=== PATIENT | female | born 1945 | race Caucasian/White ===

== ENCOUNTER 2022-07-22 07:33 | Day surgery (SDC) | payer MEDICARE, OTHER ==
[2022-07-22] MEDS ORDERED: Ringers Lactate 1,000 ML IV ONE (08:11)
[2022-07-22] MEDS ORDERED: LIDOCAINE 1% MPF 2 ML AMPULE ONE (09:22)
[2022-07-22] MEDS ORDERED: propofoL 200 MG/20 ML VIAL IV ONE (09:22)
[2022-07-22] MEDS ORDERED: ONDANSETRON 4 MG/2 ML VIAL ONE (09:22)
[2022-07-22] MEDS ORDERED: PROMETHAZINE INJ 25 MG/ML AMP ONE (09:26)
[2022-07-22] MEDS ORDERED: dexAMETHasone 4 MG/ML VIAL ONE (09:26)
[2022-07-22] MEDS ORDERED: EPINEPHRINE/PF 1 MG/ML AMP ONE (10:06)
--- NOTE | 2022-07-22 10:08 | ENDO RPT ---
[address], [address] EGD PROCEDURE REPORT EXAM DATE: 07/22/2022 PATIENT NAME: Milana Gr MR#: [id number] BIRTHDATE: 1945 ATTENDING: Viraj Lozano DR STATUS: outpatient AREA FORESTER: Funmilayo AKERS and Umer Mai [employer] INDICATIONS: The patient is a 76 yr old Female here for an EGD due to Personal history of Turcios's esophagus PROCEDURE PERFORMED: EGD with biopsy for H. pylori, EGD with biopsy, and EGD for control of bleeding MEDICATIONS: Per Anesthesia. TOPICAL ANESTHETIC: none CONSENT: The patient understands the risks and benefits of the procedure and understands that these risks include, but are not limited to: sedation, allergic reaction, infection, perforation and/or bleeding. Alternative means of evaluation and treatment include, among others: physical exam, x-rays, and/or surgical intervention. The patient elects to proceed with this endoscopic procedure. DESCRIPTION OF PROCEDURE: During intra-op preparation period all mechanical medical equipment was checked for proper function. Hand hygiene and appropriate measures for infection prevention was taken. Procedure, possible complications, and alternatives including but not limited to the possibility of bleeding, perforation, tear, infection, sepsis, need for surgery, need for blood transfusion, and anesthesia related complications were explained to the patient. After the risks, benefits and alternatives of the procedure were thoroughly explained, Informed consent was verified, confirmed and timeout was successfully executed by the treatment team. The patient was placed in the left lateral position. The patient was anesthetized with topical anesthesia. Through the anesthetized oropharyngeal area, the scope was passed without any difficulty. The EG-[id number] ([id number]) endoscope was introduced through the mouth and advanced to the third portion of the duodenum. Retroflexed views revealed a small hiatal hernia. The gastroscope was then slowly withdrawn and removed. Bile reflux was found in the gastroesophageal junction. Injection of epinepherine to biopsy sites With standard forceps, a biopsy was obtained and sent to pathology. Multiple biopsies were obtained and sent to pathology. A biopsy for H. pylori was taken. Mild gastritis was found in the body and the antrum of the stomach. Multiple biopsies were obtained and sent to pathology. With standard forceps, a biopsy was obtained and sent to pathology. A biopsy for H. pylori was taken. 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 Located 18-35 cm from the point of entry. A small hiatal hernia was found in the gastroesophageal junction. Located 38 cm from the point of entry. Inflammation was found in the gastroesophageal junction. 4 quadrant biopsies for Barretts Performed Multiple biopsies were obtained and sent to pathology. ADVERSE EVENTS: There were no complications. IMPRESSIONS: 1. Bile reflux was found in the gastroesophageal junction 2. Mild gastritis was found in the body and the antrum of the stomach RECOMMENDATIONS: 1. acid suppression therapy 2. anti-reflux regimen 3. await biopsy results 4. follow-up: office 2 week(s) 5. avoid NSAIDS 6. follow-up of helicobacter pylori status, treat if indicated 7. Refer to GI for Variceal Banding REPEAT EXAM: Repeat dependent on findings of biopsies Viraj Lozano DR eSigned: Viraj Lozano DR 07/22/2022 10:08 AM cc: CPT CODES: ICD9 CODES: PATIENT NAME: Milana Gr MR#: [id number]
[2022-07-22 10:32] VITALS: O2SAT 95
[2022-07-22 10:42] VITALS: BP 142/60; TEMP 97.9
== END 2022-07-22 10:49 | disposition home or self-care (01) ==
LOC: OR 07:33
PROVIDERS: ATTEND Surgery
PROC: 0DB98ZX Excision of Duodenum, Via Natural or Artificial Opening Endoscopic, Diagnostic (ICD-10-PCS; 2022-07-22)
PROC: 0DB78ZX Excision of Stomach, Pylorus, Via Natural or Artificial Opening Endoscopic, Diagnostic (ICD-10-PCS; 2022-07-22)
PROC: 0DB68ZX Excision of Stomach, Via Natural or Artificial Opening Endoscopic, Diagnostic (ICD-10-PCS; 2022-07-22)
PROC: 0DB18ZX Excision of Upper Esophagus, Via Natural or Artificial Opening Endoscopic, Diagnostic (ICD-10-PCS; 2022-07-22)
PROC: 0DB28ZX Excision of Middle Esophagus, Via Natural or Artificial Opening Endoscopic, Diagnostic (ICD-10-PCS; 2022-07-22)
PROC: 0DB38ZX Excision of Lower Esophagus, Via Natural or Artificial Opening Endoscopic, Diagnostic (ICD-10-PCS; 2022-07-22)
PROC: 0DB58ZX Excision of Esophagus, Via Natural or Artificial Opening Endoscopic, Diagnostic (ICD-10-PCS; 2022-07-22)
PROC: 0DB48ZX Excision of Esophagogastric Junction, Via Natural or Artificial Opening Endoscopic, Diagnostic (ICD-10-PCS; 2022-07-22)
PROC: 3E0G8GC Introduction of Other Therapeutic Substance into Upper GI, Via Natural or Artificial Opening Endoscopic (ICD-10-PCS; principal; 2022-07-22 09:15)
DX: K21.00 Gastro-esophageal reflux disease with esophagitis, without bleeding (principal); K29.50 Unspecified chronic gastritis without bleeding; K44.9 Diaphragmatic hernia without obstruction or gangrene; I85.00 Esophageal varices without bleeding
CPT/HCPCS: 43255; 43239; 88312 ×2; 88305 ×2; J2704; J1100; J0171; J7120; J2405; J2550